=== PATIENT | female | born 1955 | race Caucasian/White ===

== ENCOUNTER 2020-01-28 12:38 | Outpatient (CLI) | payer BC, SELFPAY ==
--- NOTE | 2020-01-28 12:50 | XRR_ITS ---
PROCEDURE INFORMATION: Exam: XR Left Hip with Pelvis when Performed Exam date and time: 01/28/2020 1:12 PM Age: 64 years old Clinical indication: Hip pain; Left hip; Additional info: Hip pain left x 3 months TECHNIQUE: Imaging protocol: XR Left hip with pelvis when performed. Views: 2 or 3 views. COMPARISON: No relevant prior studies available. FINDINGS: Bones/joints: Unremarkable. No acute fracture. Left hip well conjugated. No significant joint space narrowing. Femoral head maintains normal round. Soft tissues: Unremarkable. XR/XR hip LT 2-3V wo/w pel* [id number] IMPRESSION: No acute findings.
== END 2020-01-28 12:39 | disposition home or self-care (01) ==
LOC: RAD 12:43
PROVIDERS: PCP Electrodiagnostic Medicine; Visit Provider Electrodiagnostic Medicine
DX: M25.552 Pain in left hip (principal)
CPT/HCPCS: 73502

== ENCOUNTER 2020-03-11 14:22 | Outpatient (CLI) | payer BC, SELFPAY ==
--- NOTE | 2020-03-11 14:28 | MM_ITS ---
WS: [id number] Bilateral screening digital mammogram, 03/11/2020 Clinical Data: SCREENING Comparison: None. Findings: The breast parenchymal pattern shows fat replacement. No spiculated masses or clustered calcification s are seen. There are no secondary signs of carcinoma. MM/[id number] Impression: 1. Negative bilateral mammogram no prior exam for review. 2. Recommend annual screening mammograms. BIRADS: 1-Negative FOLLOW UP: 1 Year Follow-up The CAD piece work checker was used.
--- NOTE | 2020-03-11 14:59 | XR_ITS ---
WS: [id number] SCREENING DEXA SCAN [facility] [facility] CLINICAL INFORMATION: POSTMENOPAUSAL STATUS COMPARISON: None. FINDINGS: The L1-L4 bone mineral density measures 1.292 g/cm2. This corresponds to a T score score of 0.9 and Z score of 1.1. Left femoral neck bone mineral density measures 1.258 g/cm2. This corresponds to a T score of 2.0 and Z score of 2.2. Right femoral neck bone mineral density measures 1.197 g/cm2. This corresponds to a T score 1.5of and Z score of 1.7. Mean femoral neck bone mineral density measures 1.228 g/cm2. This corresponds to a T score of 1.7 and Z score of 2.0. XR/XR DEXA axial skeleton* [id number] IMPRESSION: Normal bone mineralization. Patient's FRAX calculated 10 year probability for major osteoporotic fracture i s 5.8 % and osteoporotic hip fracture is 0.1%.
== END 2020-03-11 14:23 | disposition home or self-care (01) ==
PROVIDERS: PCP Electrodiagnostic Medicine; Visit Provider Electrodiagnostic Medicine
DX: Z12.31 Encounter for screening mammogram for malignant neoplasm of breast (principal); Z78.0 Asymptomatic menopausal state
CPT/HCPCS: 77067; 77080

== ENCOUNTER → 2020-04-30 10:47 | Outpatient (BNVA) | payer BC, SELFPAY | PROVIDERS: PCP Electrodiagnostic Medicine; Visit Provider Electrodiagnostic Medicine | DX: U07.1 COVID-19 (principal) | CPT/HCPCS: 87635 ==

== ENCOUNTER 2020-07-14 07:45 | Outpatient (CLI) | payer BC, SELFPAY ==
--- NOTE | 2020-07-14 07:55 | XR_ITS ---
WS: [id number] RIGHT KNEE: 3 VIEW(S) TECHNIQUE: AP, oblique(s) and lateral. HISTORY: ACUTE R KNEE PAIN COMPARISON: None available. No fracture or dislocation. Mild narrowing of the medial compartment. Small osteophytes along the medial joint line. No joint effusion. No soft tissue abnormality. XR/XR knee RT 3V* [id number] IMPRESSION: 1. Mild medial joint compartment osteoarthritis. 2. No fracture.
== END 2020-07-14 07:46 | disposition home or self-care (01) ==
PROVIDERS: PCP Electrodiagnostic Medicine; Visit Provider Electrodiagnostic Medicine
DX: M17.11 Unilateral primary osteoarthritis, right knee (principal)
CPT/HCPCS: 73562